=== PATIENT | male | born 1990 | race Caucasian/White ===

== ENCOUNTER 2016-08-16 11:47 | Emergency (ER) | payer MEDICAID ==
--- NOTE | 2016-08-16 12:02 | ED Physician Chart ---
Chief Complaint/HPI - Patient Information Date Seen:: 08/16/16 Time Seen:: 11:57 Chief Complaint:: cp History of Present Illness:: pt c/o severe 10/10 burning pain to left chest since 9am this am. he recalls no trauma. 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 no pain yestrerday. pain is at left chest. ant l chest sore to touch which reproduces pain. no sob. pain seems to rad toward l arm/shldr. he did eat breakfast today (porkchop) wo trouble. no gi upset. no cough. no uri sx. no fever no leg edema. no leg pains. no recent travel or immobilization. no hist of panic/anxiety attack. pt was given asa and ntg by ems wo improvement. pt has no personal family hs of cad. his dad had a cva 2 yrs ago but also has dm and htn. pt has no yousif pmh. Allergies:: Allergies Allergy/AdvReac Type Severity Reaction Status Date / Time No Known Allergies Allergy Verified 01/17/16 08:29 Historian:: Patient Review of Systems - Review of Systems General/Constitutional: No fever, No chills, No weight loss, No weakness, No diaphoresis, No edema, No loss of appetite Skin: No skin lesions, No rash, No bruising Head: No headache, No light-headedness Eyes: No loss of vision, No pain, No diplopia ENT: No earache, No nasal drainage, No sore throat, No tinnitus Neck: No neck pain, No swelling, No thyromegaly, No stiffness, No mass noted Cardio Vascular: No chest pain, No palpitations, No PND, No orthopnea, No edema Pulmonary: No SOB, No cough, No sputum, No wheezing GI: No nausea, No vomiting, No diarrhea, No pain, No melena, No hematochezia, No constipation, No hematemesis G/U: No dysuria, No frequency, No hematuria Musculoskeletal: No bone or joint pain, No back pain, No muscle pain Endocrine: No polyuria, No polydipsia Psychiatric: No prior psych history, No depression, No anxiety, No suicidal ideation Hematopoietic: No bruising, No lymphadenopathy Allergic/Immuno: No urticaria, No angioedema Neurological: No syncope, No focal symptoms, No weakness, No paresthesia, No headache, No seizure, No dizziness, No confusion, No vertigo Past Medical History - Past Medical History Past Medical History: No significant medical hx Social History: Smoker (1ppwk), No Drug Use (denies coccaine, crack or iv drug use) Medication: Reviewed Family Medical History - Family Member Mother Ethnicity: Living Status: Still Living Hx Family Hypertension: Yes Hx Family Diabetes: Yes Father Living Status: Still Living Hx Family Diabetes: Yes Labs/Radiology/EKG Results - Lab Results Results: Laboratory Tests 08/16/16 08/16/16 08/16/16 12:05 12:05 12:05 WBC 5.7 D RBC 4.43 Hgb 15.2 Hct 44.3 MCV 100.0 H MCH 34.4 H MCHC Differential 34.4 RDW 13.1 Plt Count 317 D MPV 6.8 Neutrophils % 53.7 Lymphocytes % 29.1 Monocytes % 8.6 Eosinophils % 8.2 H Basophils % 0.4 Sodium 138 Potassium 3.9 Chloride 103 Carbon Dioxide 29.8 Anion Gap 9.1 BUN 7 Creatinine 0.7 Est GFR ( Amer) > 60.0 Est GFR (Non-Af Amer) > 60.0 BUN/Creatinine Ratio 10.0 Glucose 102 Calcium 9.2 Total Bilirubin 0.6 AST 44 H ALT 42 Alkaline Phosphatase 79 Troponin I 0.01 Total Protein 8.5 H Albumin 4.9 Globulin 3.6 Albumin/Globulin Ratio 1.4 Urine Opiates Screen Urine Methadone Screen Ur Barbiturates Screen Ur Tricyclics Screen Ur Phencyclidine Scrn Amphetamines Screen U Methamphetamines Scrn U Benzodiazepines Scrn U Cocaine Metab Screen U Cannabinoids Screen 08/16/16 12:10 WBC RBC Hgb Hct MCV MCH MCHC Differential RDW Plt Count MPV Neutrophils % Lymphocytes % Monocytes % Eosinophils % Basophils % Sodium Potassium Chloride Carbon Dioxide Anion Gap BUN Creatinine Est GFR ( Amer) Est GFR (Non-Af Amer) BUN/Creatinine Ratio Glucose Calcium Total Bilirubin AST ALT Alkaline Phosphatase Troponin I Total Protein Albumin Globulin Albumin/Globulin Ratio Urine Opiates Screen NEGATIVE Urine Methadone Screen NEGATIVE Ur Barbiturates Screen NEGATIVE Ur Tricyclics Screen NEGATIVE Ur Phencyclidine Scrn NEGATIVE Amphetamines Screen NEGATIVE U Methamphetamines Scrn NEGATIVE U Benzodiazepines Scrn NEGATIVE U Cocaine Metab Screen NEGATIVE U Cannabinoids Screen NEGATIVE - Radiology Results Results: cxr nad/ wnl no ptx. no inf/ no effn - EKG Interpretations EKG Time:: 11:45 Rhythm: nsr [place]: 50 Rate: 97 Comments:: normal st/t waves. wnl ED Septic Shock - . Is Septic Shock (SBP<90, OR Lactate>4 mmol\L) present?: No Reassessment (Disposition) - Reassessment Reassessment:: results reviewed w pt. dx explained. pt to use naproxyn for pain. see pmd this week. return if worse cp and sob and nausea and l arm pain...or else worse. pt reports pain has resolves s/p toradol. feels fine now..except he feels a bit sleepy now.. Reassessment Condition:: Improved - Diagnosis Diagnosis:: 1 musculoskeletal chest pain - Aftercare/Follow up Instructions Aftercare/Follow-Up Instructions:: Counseled pt regarding lab results/diagnosis & need follow up - Patient Disposition Discharge/Transfer:: Home Condition at Disposition:: Improved
[2016-08-16 12:10] LABS: % BASOPHILS 0.4 % (0.0-2.0); % EOSINOPHILS 8.2 % (0.0-5.0); % LYMPHOCYTES 29.1 % (20.0-50.0); % MONOCYTES 8.6 % (2.0-10.0); % NEUTROPHILS 53.7 % (40.0-80.0); HEMATOCRIT 44.3 % (39.0-49.0); HEMOGLOBIN 15.2 gm/dL (13.2-17.3); MEAN CORPUSCULAR HEMOGLOBIN 34.4 pg (26.0-30.0); MEAN CORPUSCULAR HGB CONC 34.4 pg (28.0-36.0); MEAN PLATELET VOLUME 6.8 fl; RED BLOOD COUNT 4.43 Mil/cmm (4.30-5.70); RED CELL DISTRIBUTION WIDTH 13.1 % (11.5-20.0)
[2016-08-16 12:12] LABS: PLATELET COUNT 317 Th/cmm (150-400); WHITE BLOOD COUNT 5.7 Th/cmm (4.8-10.8)
[2016-08-16 12:31] LABS: ALB/GLOB RATIO 1.4 (1.0-1.8); ALKALINE PHOSPHATASE 79 U/L (34-104); ANION GAP 9.1 (7.0-16.0); BILIRUBIN,TOTAL 0.6 mg/dL (0.3-1.0); BUN - UREA NITROGEN 7 mg/dL (7-25); CALCIUM SERUM 9.2 mg/dL (8.6-10.3); CARBON DIOXIDE 29.8 mEq/L (21.0-31.0); CHLORIDE 103 mEq/L (98-107); CREATININE - SERUM 0.7 mg/dL (0.7-1.3); GLUCOSE 102 mg/dL (70-105); POTASSIUM SERUM 3.9 mEq/L (3.5-5.1); SGOT 44 U/L (13-39); SGPT/ALT 42 U/L (7-52); SODIUM SERUM 138 mEq/L (136-145)
[2016-08-16 12:35] LABS: AMPHETAMINE URINE NEGATIVE (NEGATIVE); BARBITURATES URINE NEGATIVE (NEGATIVE); METHADONE URINE NEGATIVE (NEGATIVE)
--- NOTE | 2016-08-16 14:00 | Diagnostic Imaging Report ---
CHEST X-RAY: AP view INDICATION: Left-sided chest pain COMPARISON: None FINDINGS: There is no focal consolidation or pleural effusions The heart is normal in size. There is slight irregularity of the left upper second rib.. No evidence of pneumothorax. IMPRESSION: No acute cardiopulmonary disease. Slight irregularly the left upper second rib possibly due to age-indeterminate/possible chronic trauma. Please correlate with clinical findings. No evidence of pneumothorax.
== END 2016-08-16 14:14 | disposition home or self-care (01) ==
LOC: ER 11:47
DX: R07.89 Other chest pain (principal); F17.210 Nicotine dependence, cigarettes, uncomplicated
CPT/HCPCS: 36415-UA; 71010-TC; 80053-TC; 84484-TC; 85025-TC; 93005; 96374; J1885

== ENCOUNTER 2017-03-24 12:43 | Emergency (ER) | payer MEDICAID ==
--- NOTE | 2017-03-24 13:13 | ED Physician Chart ---
ED Chief Complaint/HPI - Patient Information Date Seen:: 03/24/17 Time Seen:: 13:04 Chief Complaint:: GENERALIZED BODY ACHES FROM HEAD TO TOE X 2 DAYS FROM DRINKING ETOH. History of Present Illness:: PT WITH GENERALIZED BODY, MOST PROMINENT IN THE LOW BACK. NO ASSOCIATED WEAKNESS OR PARENTHESIS. DENIES NAUSEA OR VOMITING. HAS DIARRHEA ALMOST DAILY. NO ABD PAIN. FELL OFF ROOF 11 MO AGO WITH MULTIPLE BROKEN BONES IN LT ANKLE AND FOOT. NO PAIN AT THIS TIME. NO SHORTNESS OR BREATH OR CHEST PAIN. NO COUGH. 10/10 SEVERITY OF body ACHES. No associated relieving or exacerbating factors. Has had similar symptoms in the past when he abuses alcohol. Allergies:: Allergies Allergy/AdvReac Type Severity Reaction Status Date / Time No Known Allergies Allergy Verified 01/17/16 08:29 Vitals:: Vital Signs - 8 hr 03/24/17 12:53 Temp 98.3 F HR 99 RR 16 BP 154/103 O2 Sat % 98 ED Review of Systems - Review of Systems General/Constitutional: No fever, No chills, No weight loss, No diaphoresis, Other (generalized weakness.) Skin: No skin lesions, No rash, No bruising Head: Headache, No light-headedness Eyes: No loss of vision, No pain, No diplopia ENT: No earache, No sore throat, No tinnitus Neck: No neck pain, No swelling, No stiffness, Mass noted Cardio Vascular: No chest pain, No palpitations, No orthopnea, No edema Pulmonary: No SOB, No cough, No sputum, No wheezing GI: No nausea, No vomiting, Diarrhea, No pain, No constipation, No hematemesis G/U: No dysuria, No frequency, No hematuria, Other (circumcised.) Musculoskeletal: Bone or joint pain, Back pain, Muscle pain Psychiatric: No prior psych history, No depression, No anxiety, No suicidal ideation, No homicidal ideation Hematopoietic: No bruising, No lymphadenopathy Allergic/Immuno: No urticaria, No angioedema Neurological: No syncope, No focal symptoms, Weakness, No paresthesia, Headache , No seizure ED Past Medical History - Past Medical History Past Medical History: Other (90s any history of diabetes, hypertension or heart disease.) Social History: Smoker, Alcohol, Illicit Drug Use (patient uses marijuana), Single, 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 We'll give him mild distress because of his complaint of body aches. Head: Atraumatic Eyes: Lids, conjuctiva normal, PERRL, EOMI Other Eyes comments:: has horizontal nystagmus with gaze to both the right and the left. Skin: Nl inspection, No rash, No skin lesions, No ecchymosis ENMT: External ears, nose nl, TM canals nl, Nasal exam nl, Oropharynx nl, Tonsils nl Other ENMT comments:: Multiple missing and broken teeth. Also areas of dental caries. Neck: Nontender, Full ROM w/o pain, No JVD, No nuchal rigidity, No bruit, No mass, No stridor Respiratory: Nl effort/Exclusion, Clear to Auscultation, No Wheeze/Rhonchi/Rales Cardio Vascular: No murmur, gallop, rubs, NL S1 S2 Other Cardio Vascular comments:: Good pulses all 4 extremities. GI: No tenderness/rebounding/guarding, No organomegaly, No hernia, Normal BS's, Nondistended, No mass/bruits, No McBurney tenderness Other GI comments:: Rectal exam deferred at my discretion. The patient has no visible surgical scars on the abdomen. : No CVA tenderness, NL external genitalia Extremities: No tenderness or effusion, Full ROM, normal strength in all extremities, Normal digits & nails Neuro/Psych: Alert/oriented, DTR's symmetric, Normal sensory exam, Normal motor strength, Mood normal, Normal gait, No focal deficits Misc: Normal back, No paraspinal tenderness Other Misc comments:: No spinal tenderness on palpation over the thoracic or lumbar spine regions. No paraspinous muscle spasm. Straight leg raising. ED Labs/Radiology/EKG Results - Lab Results Results: Laboratory Results - last 24 hr 03/24/17 03/24/17 03/24/17 13:15 13:15 13:15 WBC 5.8 RBC 5.40 Hgb 18.5 D Hct 54.0 D MCV 99.9 H MCH 34.2 H MCHC Differential 34.2 RDW 12.9 Plt Count 204 D MPV 7.9 Neutrophils % 54.5 Lymphocytes % 26.3 Monocytes % 7.1 Eosinophils % 12.0 H Basophils % 0.1 PT INR PTT (Actin FS) Sodium 135 L Potassium 3.7 Chloride 100 Carbon Dioxide 28.7 Anion Gap 10.0 BUN 7 Creatinine 0.7 Est GFR ( Amer) > 60.0 Est GFR (Non-Af Amer) > 60.0 BUN/Creatinine Ratio 10.0 Glucose 82 Calcium 9.7 Total Bilirubin 1.2 H AST 73 H ALT 52 Alkaline Phosphatase 88 Total Protein 9.6 H Albumin 5.5 Globulin 4.1 Albumin/Globulin Ratio 1.3 Amylase Lipase Urine Source RANDOM Urine Color YELLOW Urine Clarity SL. CLOUDY Urine pH 5.5 Ur Specific [place] <= 1.005 Urine Protein TRACE Urine Glucose (UA) NEGATIVE Urine Ketones NEGATIVE Urine Blood TRACE Urine Nitrate NEGATIVE Urine Bilirubin NEGATIVE Urine Urobilinogen 0.2 Ur Leukocyte Esterase NEGATIVE Urine RBC 0-2 H Urine WBC NONE SEEN Ur Epithelial Cells RARE Urine Bacteria NONE SEEN Urine Opiates Screen Urine Methadone Screen Ur Barbiturates Screen Ur Tricyclics Screen Ur Phencyclidine Scrn Amphetamines Screen U Methamphetamines Scrn U Benzodiazepines Scrn U Cocaine Metab Screen U Cannabinoids Screen 03/24/17 03/24/17 03/24/17 13:15 13:15 13:15 WBC RBC Hgb Hct MCV MCH MCHC Differential RDW Plt Count MPV Neutrophils % Lymphocytes % Monocytes % Eosinophils % Basophils % PT 9.7 INR 0.93 PTT (Actin FS) 29.0 Sodium Potassium Chloride Carbon Dioxide Anion Gap BUN Creatinine Est GFR ( Amer) Est GFR (Non-Af Amer) BUN/Creatinine Ratio Glucose Calcium Total Bilirubin AST ALT Alkaline Phosphatase Total Protein Albumin Globulin Albumin/Globulin Ratio Amylase 33 Lipase 12 Urine Source Urine Color Urine Clarity Urine pH Ur Specific [place] Urine Protein Urine Glucose (UA) Urine Ketones Urine Blood Urine Nitrate Urine Bilirubin Urine Urobilinogen Ur Leukocyte Esterase Urine RBC Urine WBC Ur Epithelial Cells Urine Bacteria Urine Opiates Screen NEGATIVE Urine Methadone Screen NEGATIVE Ur Barbiturates Screen NEGATIVE Ur Tricyclics Screen NEGATIVE Ur Phencyclidine Scrn NEGATIVE Amphetamines Screen NEGATIVE U Methamphetamines Scrn NEGATIVE U Benzodiazepines Scrn NEGATIVE U Cocaine Metab Screen NEGATIVE U Cannabinoids Screen NEGATIVE The CBC is unremarkable with no leukocytosis or anemia. His renal function studies were normal. Liver function studies were all within normal parameters except for the AST which was mildly elevated. Electrolytes were all within normal parameters except for the serum sodium which was mildly depressed. Urinalysis was negative for any suggestive of UTI. ED Septic Shock - . Is Septic Shock (SBP<90, OR Lactate>4 mmol\L) present?: No - <6hrs of presentation: Vital Signs: Vital Signs - 8 hr 03/24/17 12:53 Temp 98.3 F HR 99 RR 16 BP 154/103 O2 Sat % 98
[2017-03-24] MEDS ORDERED: Multivitamin Inj 10 ML, Thiamine HCL 100 MG, Magnesium Sulfate 2 GM, Folic Acid 1 MG in... IV ONE (13:16)
[2017-03-24] MEDS ORDERED: Sodium Chloride 0.9% 1,000 ML IV ONE ×2 (13:20)
[2017-03-24 13:26] LABS: URINE MICROSCOPIC INDICATED? YES; URINE SOURCE RANDOM
[2017-03-24 13:27] LABS: % BASOPHILS 0.1 % (0.0-2.0); % LYMPHOCYTES 26.3 % (20.0-50.0); % MONOCYTES 7.1 % (2.0-10.0); % NEUTROPHILS 54.5 % (40.0-80.0); EOSINOPHILE ABSOLUTE 0.7 Th/cmm (0.1-0.4); LYMPHOCYTE ABSOLUTE 1.5 Th/cmm (1.5-3.0); MEAN CELL VOLUME 99.9 fl (80-99); MEAN CORPUSCULAR HEMOGLOBIN 34.2 pg (26.0-30.0); MEAN CORPUSCULAR HGB CONC 34.2 pg (28.0-36.0); MEAN PLATELET VOLUME 7.9 fl; MONOCYTE ABSOLUTE 0.4 Th/cmm (0.3-1.0); NEUTROPHILE ABSOLUTE 3.2 Th/cmm (1.8-8.0); RED CELL DISTRIBUTION WIDTH 12.9 % (11.5-20.0); WHITE BLOOD COUNT 5.8 Th/cmm (4.8-10.8)
[2017-03-24] MEDS ORDERED: Thiamine 100 mg/mL 2mL Vial ONE (13:27)
[2017-03-24] MEDS ORDERED: Magnesium Sulfate 1 gm/2 mL 2mL Vial IV ONE (13:27)
[2017-03-24 13:28] LABS: HEMOGLOBIN 18.5 gm/dL (12-16); PLATELET COUNT 204 Th/cmm (150-400)
[2017-03-24] MEDS ORDERED: Multivitamin Inj 10 mL Vial IV ONE (13:28)
[2017-03-24 13:37] LABS: URINE BILIRUBIN NEGATIVE (NEGATIVE); URINE BLOOD TRACE (NEGATIVE); URINE COLOR YELLOW; URINE GLUCOSE (UA) NEGATIVE (NEGATIVE); URINE KETONE NEGATIVE (NEGATIVE); URINE LEUKOCYTE ESTERASE NEGATIVE (NEGATIVE); URINE NITRATE NEGATIVE (NEGATIVE); URINE PH 5.5 (4.6 - 8.0); URINE PROTEIN TRACE mg/dL (NEGATIVE); URINE UROBILINOGEN 0.2 E.U./dL (0.2 - 1.0)
[2017-03-24 13:38] LABS: URINE CLARITY SL. CLOUDY (CLEAR)
[2017-03-24 13:40] LABS: URINE BACTERIA NONE SEEN /hpf (NONE SEEN); URINE EPITHELIAL CELLS RARE /lpf (FEW); URINE RBC 0-2 /hpf (0-5); URINE WBC NONE SEEN /hpf (0-5)
[2017-03-24 13:42] LABS: INR 0.93 (0.5-1.4); PROTHROMBIN TIME (TEST) 9.7 SECONDS (9.5-11.5)
[2017-03-24 13:46] LABS: AMPHETAMINE URINE NEGATIVE (NEGATIVE); BARBITURATES URINE NEGATIVE (NEGATIVE); BENZODIAZEPINES QUAL URINE NEGATIVE (NEGATIVE); CANNABINOID THC NEGATIVE (NEGATIVE); COCAINE METABOLITE QUAL URINE NEGATIVE (NEGATIVE); METHADONE URINE NEGATIVE (NEGATIVE); METHAMPHETAMINES QUAL URINE NEGATIVE (NEGATIVE); OPIATES (MORPHINE) QUAL. URINE NEGATIVE (NEGATIVE); PHENCYCLIDINE (PCP) URINE NEGATIVE (NEGATIVE); TRICYCLICS (TCA) QUAL. URINE NEGATIVE (NEGATIVE)
[2017-03-24 13:47] LABS: ALB/GLOB RATIO 1.3 (1.0-1.8); ALBUMIN 5.5 gm/dL (4.2-5.5); ALKALINE PHOSPHATASE 88 U/L (34-104); BILIRUBIN,TOTAL 1.2 mg/dL (0.3-1.0); BUN - UREA NITROGEN 7 mg/dL (7-25); CALCIUM SERUM 9.7 mg/dL (8.6-10.3); CARBON DIOXIDE 28.7 mEq/L (21.0-31.0); CHLORIDE 100 mEq/L (98-107); CREATININE - SERUM 0.7 mg/dL (0.7-1.3); GFR AFRICAN-AMERICAN > 60.0 ml/min (>90); GFR NON AFRICAN-AMERICAN > 60.0 ml/min; GLUCOSE 82 mg/dL; POTASSIUM SERUM 3.7 mEq/L (3.5-5.1); SGOT 73 U/L (13-39); SGPT/ALT 52 U/L (7-52); SODIUM SERUM 135 mEq/L (136-145); TOTAL PROTEIN,SERUM 9.6 gm/dL (6.0-8.3)
[2017-03-24 13:48] LABS: AMYLASE SERUM 33 U/L (29-103); LIPASE 12 U/L (11-82)
== END 2017-03-24 16:35 | disposition home or self-care (01) ==
LOC: ER 12:43
DX: R52 Pain, unspecified (principal); M54.5 Low back pain; R19.7 Diarrhea, unspecified; F17.200 Nicotine dependence, unspecified, uncomplicated
CPT/HCPCS: 99284; 36415; 80307; 85025; 85610; 82150; 83690; 80053; 81001; J3411 ×2; J3475; J7030; X6226; X6598; Z7502

== ENCOUNTER 2017-08-01 20:03 | Emergency (ER) | payer MEDICAID ==
[2017-08-01] MEDS ORDERED: Maalox 30 mL Cup PO ONE (20:29)
[2017-08-01] MEDS ORDERED: Donnatal Liq 5 ML UDC PO STA (20:30)
[2017-08-01] MEDS ORDERED: Maalox 30 mL Cup ONE (20:38)
--- NOTE | 2017-08-01 21:12 | ED Physician Chart ---
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 Allergies:: Allergies Allergy/AdvReac Type Severity Reaction Status Date / Time No Known Allergies Allergy Verified 01/17/16 08:29 Vitals:: Vital Signs - 8 hr 08/01/17 08/01/17 20:05 20:42 Temp 97.8 F 98.1 F HR 107 71 RR 18 16 BP 125/70 128/62 O2 Sat % 98 98 Historian:: Patient, EMS Review:: Nurse's Note Reviewed, Old Chart Reviewed, EMS run form Reviewed ED Review of Systems - Review of Systems General/Constitutional: No fever, No chills, No weight loss, No weakness, No diaphoresis, No edema, No loss of appetite Skin: No skin lesions, No rash, No bruising Head: No headache, No light-headedness Eyes: No loss of vision, No pain, No diplopia ENT: No earache, No nasal drainage, No sore throat, No tinnitus Neck: No neck pain, No swelling, No thyromegaly, No stiffness, No mass noted Cardio Vascular: No chest pain, No palpitations, No PND, No orthopnea, No edema Pulmonary: No SOB, No cough, No sputum, No wheezing GI: No nausea, No vomiting, No diarrhea, Pain, No melena, No hematochezia, No constipation, No hematemesis G/U: No dysuria, No frequency, No hematuria, No nacturia Musculoskeletal: No bone or joint pain, No back pain, No muscle pain Endocrine: No polyuria, No polydipsia Psychiatric: No prior psych history, No depression, No anxiety, No suicidal ideation, No homicidal ideation, No auditory hallucination, No visual hallucination Hematopoietic: No bruising, No lymphadenopathy Allergic/Immuno: No urticaria, No angioedema Neurological: No syncope, No focal symptoms, No weakness, No paresthesia, No headache, No seizure, No dizziness, No confusion, No vertigo ED Past Medical History - Past Medical History Obtainable: Yes Past Medical History: No significant medical hx Family History: HTN Social History: Smoker, Alcohol, No Drug Use, Single, Lives With Parents Surgical History: None Psychiatricy History: None Medication: Reviewed Family Medical History - Family Member Mother History Unknown: Yes Ethnicity: Living Status: Still Living Hx Family Hypertension: Yes Hx Family Diabetes: Yes Father History Unknown: Yes Ethnicity: Living Status: Still Living Hx Family Hypertension: Yes Hx Family Diabetes: Yes ED Physical Exam - Physical Examination General/Constitutional: Awake, Well-developed, well-nourished, Alert, No distress, GCS 15, Non-toxic appearing, Ambulatory Head: Atraumatic Eyes: Lids, conjuctiva normal, PERRL, EOMI Other Eyes comments:: PERRLA; Fundi: benign; EOMs: WNL Skin: Nl inspection, No rash, No skin lesions, No ecchymosis, Well hydrated, No lymphadenopathy ENMT: External ears, nose nl, TM canals nl, Nasal exam nl, Lips, teeth, gums nl , Oropharynx nl, Tonsils nl Other ENMT comments:: TMJs: WNL Neck: Nontender, Full ROM w/o pain, No JVD, No nuchal rigidity, No bruit, No mass, No stridor Other Neck comments:: supple; no meningeal signs; no cervical tenderness; no bruits Respiratory: Nl effort/Exclusion, Clear to Auscultation, No Wheeze/Rhonchi/Rales Cardio Vascular: RRR, No murmur, gallop, rubs, NL S1 S2, Carotid/Femoral/Distal pulses equal bilaterally GI: No tenderness/rebounding/guarding, No organomegaly, No hernia, Normal BS's, Nondistended, No mass/bruits, No McBurney tenderness, Rectum exam nl Other GI comments:: no pulsatile masses; good BS : No CVA tenderness Extremities: No tenderness or effusion, Full ROM, normal strength in all extremities, No edema, Normal digits & nails Neuro/Psych: Alert/oriented, DTR's symmetric, Normal sensory exam, Normal motor strength, Judgement/insight normal, Mood normal, Normal gait, No focal deficits Misc: Normal back, No paraspinal tenderness ED Septic Shock - . Is Septic Shock (SBP<90, OR Lactate>4 mmol\L) present?: No - <6hrs of presentation: Vital Signs: Vital Signs - 8 hr 08/01/17 08/01/17 20:05 20:42 Temp 97.8 F 98.1 F HR 107 71 RR 18 16 BP 125/70 128/62 O2 Sat % 98 98 ED Reassessment (Disposition) - Reassessment Reassessment:: pt tolerated po fluids well in ER; pt is asymptomatic upon discharge Reassessment Condition:: Improved - Diagnosis Diagnosis:: Epigastric/Abdominal Pain-Resolved; AGE; Gastritis; Alcoholism - Aftercare/Follow up Instructions Aftercare/Follow-Up Instructions:: Counseled pt regarding lab results/diagnosis & need follow up, Refer to Discharge Instructions, Counseled pt & family regarding lab results/diagnosis & need follow up Medication Prescribed:: Avoid Alcoholic Beverages; Stop Smoking Cigarettes; Mylanta 30cc po tid prn stomach aches; Tylenol: take medications as prescribed; clear liquids; encourage fluids - Patient Disposition Discharge/Transfer:: Home Condition at Disposition:: Stable, Improved (RTER prn if existing s/s reoccur and/or get worse and/or any other new s/s occur; ACIs given for all above Dx; Refer to [facility] RAUL; Refer to GI Specialist/Psychiatrist/Drink Box Mechanic RAUL; F/U with PMD in one day or prn; RTER prn if concerned) ED Discharge Plan - Patient Disposition Admit/Discharge/Transfer: PT DISCHARGED HOME Instructions: Abdominal Pain Additional Instructions: FOLLOW UP WITH YOUR PRIMARY MEDICAL DOCTOR RAUL STOP DRINKING ALCOHOLIC BEVERAGES
== END 2017-08-01 21:00 | disposition home or self-care (01) ==
LOC: ER 20:03
DX: K52.9 Noninfective gastroenteritis and colitis, unspecified (principal); F10.20 Alcohol dependence, uncomplicated; F17.200 Nicotine dependence, unspecified, uncomplicated
CPT/HCPCS: Z7502

== ENCOUNTER 2017-09-22 21:34 | Emergency (ER) | payer MEDICAID ==
[2017-09-22] MEDS ORDERED: Sodium Chloride 0.45% 1,000 ML IV ONE (21:51)
--- NOTE | 2017-09-22 21:57 | ED Physician Chart ---
ED Chief Complaint/HPI - Patient Information Date Seen:: 09/22/17 Time Seen:: 21:49 Chief Complaint:: ALCOHOL INTOXICATION History of Present Illness:: THIS IS A 26 YO ALCOHOLIC WELL KNOW IN THIS ER WHO STATES THAT HE HAS BEEN DRINKING ALCOHOL ALL DAY. HE STATES THAT HE DRINKS TO LOWER HIS STRESS ABOUT HIS DAUGHTER. HE DENIES ALL OTHER MEDICAL PROBLEMS. Allergies:: Allergies Allergy/AdvReac Type Severity Reaction Status Date / Time No Known Allergies Allergy Verified 01/17/16 08:29 Vitals:: Vital Signs - 8 hr 09/22/17 21:35 Temp 97.7 F HR 100 RR 18 BP 146/81 O2 Sat % 96 Historian:: Patient, Medical Records Review:: Nurse's Note Reviewed, Old Chart Reviewed ED Review of Systems - Review of Systems General/Constitutional: No fever, No chills, Weight loss, Weakness, No diaphoresis, No edema, No loss of appetite Skin: No skin lesions, No rash, No bruising Head: No headache, No light-headedness Eyes: No loss of vision, No pain, No diplopia ENT: No earache, No nasal drainage, No sore throat, No tinnitus Neck: No neck pain, No swelling, No thyromegaly, No stiffness, No mass noted Cardio Vascular: No chest pain, No palpitations, No PND, No orthopnea, No edema Pulmonary: No SOB, No cough, No sputum, No wheezing GI: No nausea, No vomiting, No diarrhea, No pain, No melena, No hematochezia, No constipation, No hematemesis G/U: No dysuria, No frequency, No hematuria Musculoskeletal: No bone or joint pain, No back pain, No muscle pain Endocrine: No polyuria, No polydipsia Psychiatric: No prior psych history, Depression, No anxiety, No suicidal ideation Hematopoietic: No bruising, No lymphadenopathy Allergic/Immuno: No urticaria, No angioedema Neurological: No syncope, No focal symptoms, No weakness, No paresthesia, No headache, No seizure, No dizziness, No confusion, No vertigo ED Past Medical History - Past Medical History Obtainable: Yes Past Medical History: No significant medical hx Family History: None Social History: Smoker, Alcohol, Illicit Drug Use, Single Surgical History: None Psychiatricy History: None Medication: Reviewed Family Medical History - Family Member Mother History Unknown: Yes Ethnicity: Living Status: Still Living Hx Family Hypertension: Yes Hx Family Diabetes: Yes Father History Unknown: Yes Ethnicity: Living Status: Still Living Hx Family Hypertension: Yes Hx Family Diabetes: Yes ED Physical Exam - Physical Examination General/Constitutional: Awake, Well-developed, well-nourished, Alert, No distress, GCS 15, Ambulatory Other Gen/Cons comments:: INTOXICATED LOOKING Head: Atraumatic Eyes: Lids, conjuctiva normal, PERRL, EOMI Skin: Nl inspection, No rash, No skin lesions, No ecchymosis, Well hydrated, No lymphadenopathy ENMT: External ears, nose nl, Nasal exam nl, Lips, teeth, gums nl Neck: Nontender, Full ROM w/o pain, No JVD, No nuchal rigidity, No bruit, No mass, No stridor Respiratory: Nl effort/Exclusion, Clear to Auscultation, No Wheeze/Rhonchi/Rales Cardio Vascular: RRR, No murmur, gallop, rubs, NL S1 S2 GI: No tenderness/rebounding/guarding, No organomegaly, No hernia, Normal BS's, Nondistended, No mass/bruits, No McBurney tenderness : No CVA tenderness Extremities: No tenderness or effusion, Full ROM, normal strength in all extremities, No edema, Normal digits & nails Neuro/Psych: Alert/oriented, DTR's symmetric, Normal sensory exam, Normal motor strength, Judgement/insight normal, Mood normal, Normal gait, No focal deficits Misc: Normal back, No paraspinal tenderness ED Labs/Radiology/EKG Results - EKG Interpretations EKG Time:: 21:43 Rate & Rhythm: RATE=95, SINUS [place]: RIGHT AXIS Intervals: NO ECTOPY SEEN ED Assessment - Assessment General Assessment: ALCOHOLIC INTOXICATION ED Septic Shock - . Is Septic Shock (SBP<90, OR Lactate>4 mmol\L) present?: No - <6hrs of presentation: Vital Signs: Vital Signs - 8 hr 09/22/17 21:35 Temp 97.7 F HR 100 RR 18 BP 146/81 O2 Sat % 96 ED Reassessment (Disposition) - Reassessment Reassessment Condition:: Improved - Diagnosis Diagnosis:: ALCOHOL INTOXICATION - Aftercare/Follow up Instructions Aftercare/Follow-Up Instructions:: Counseled pt regarding lab results/diagnosis & need follow up, Refer to Discharge Instructions, Counseled pt & family regarding lab results/diagnosis & need follow up - Patient Disposition Discharge/Transfer:: Home
[2017-09-22 22:14] LABS: % BASOPHILS 1.6 % (0.0-2.0); % EOSINOPHILS 4.7 % (0.0-5.0); % LYMPHOCYTES 25.2 % (20.0-50.0); % NEUTROPHILS 61.5 % (40.0-80.0); BASOPHILE ABSOLUTE 0.1 Th/cumm (0-0.2); EOSINOPHILE ABSOLUTE 0.2 Th/cmm (0.1-0.4); HEMATOCRIT 46.6 % (41.0-60); HEMOGLOBIN 15.9 gm/dL (12-16); LYMPHOCYTE ABSOLUTE 1.2 Th/cmm (1.5-3.0); MEAN CELL VOLUME 102.9 fl (80-99); MEAN PLATELET VOLUME 6.9 fl; MONOCYTE ABSOLUTE 0.3 Th/cmm (0.3-1.0); PLATELET COUNT 203 Th/cmm (150-400); RED BLOOD COUNT 4.52 Mil/cmm (4.30-5.70); WHITE BLOOD COUNT 4.8 Th/cmm (4.8-10.8)
[2017-09-22 22:28] LABS: INR 0.97 (0.5-1.4); PROTHROMBIN TIME (TEST) 10.1 SECONDS (9.5-11.5)
[2017-09-22 22:30] LABS: ALB/GLOB RATIO 1.3 (1.0-1.8); ALBUMIN 4.6 gm/dL (4.2-5.5); ALKALINE PHOSPHATASE 98 U/L (34-104); ANION GAP 19.5 (7.0-16.0); BILIRUBIN,TOTAL 0.8 mg/dL (0.3-1.0); BUN - UREA NITROGEN 10 mg/dL (7-25); CALCIUM SERUM 9.2 mg/dL (8.6-10.3); CHLORIDE 97 mEq/L (98-107); CREATININE - SERUM 0.6 mg/dL (0.7-1.3); GFR AFRICAN-AMERICAN > 60.0 ml/min (>90); GFR NON AFRICAN-AMERICAN > 60.0 ml/min; GLUCOSE 94 mg/dL (70-105); POTASSIUM SERUM 3.5 mEq/L (3.5-5.1); SGOT 56 U/L (13-39); SGPT/ALT 40 U/L (7-52); SODIUM SERUM 138 mEq/L (136-145); TOTAL PROTEIN,SERUM 8.2 gm/dL (6.0-8.3)
== END 2017-09-23 00:15 | disposition home or self-care (01) ==
LOC: ER 21:34
DX: F10.129 Alcohol abuse with intoxication, unspecified (principal); F17.200 Nicotine dependence, unspecified, uncomplicated
CPT/HCPCS: 36415-UA; 80053-TC; 80320-TC; 84443-TC; 84484-TC; 85025-TC; 85610-TC; 93005

== ENCOUNTER 2017-09-23 19:47 | Emergency (ER) | payer MEDICAID ==
--- NOTE | 2017-09-23 20:16 | ED Physician Chart ---
ED Chief Complaint/HPI - Patient Information Date Seen:: 09/23/17 Time Seen:: 20:03 Chief Complaint:: Pt is intoxicated with ethanol. History of Present Illness:: Brought in by ambulance because pt was noticed to be intoxicated with ethanol and has had frontal headache. Pt denies recent h/o head injury. Pt had transient N/V earlier today with vomitus consists of gastric content. No hematemesis. Pt appears to be comfortable. He speaks clearly but is not fully cooperative. H & P are thus limited. Allergies:: Allergies Allergy/AdvReac Type Severity Reaction Status Date / Time No Known Allergies Allergy Verified 09/23/17 19:56 Vitals:: Vital Signs - 8 hr 09/23/17 19:50 Temp 98.2 F HR 110 RR 18 BP 150/100 O2 Sat % 97 Historian:: Patient Family MD/PCP:: Unknown LMP:: N/A Review:: Nurse's Note Reviewed ED Review of Systems - Review of Systems General/Constitutional: No fever, No weight loss, No weakness, No edema, No loss of appetite Skin: No rash, No bruising Head: Headache, No light-headedness Eyes: No loss of vision, No pain, No diplopia ENT: No earache, No nasal drainage, No sore throat Neck: No neck pain, No swelling, No stiffness, No mass noted Cardio Vascular: No chest pain Pulmonary: No SOB, No cough GI: Nausea, Vomiting, No diarrhea, No pain, No melena, No hematochezia, No hematemesis G/U: No dysuria, No frequency, No hematuria Musculoskeletal: No bone or joint pain Psychiatric: No prior psych history, No depression Hematopoietic: No bruising, No lymphadenopathy Allergic/Immuno: No urticaria, No angioedema Neurological: No syncope, No focal symptoms, No weakness, No paresthesia, Headache, No seizure ED Past Medical History - Past Medical History Past Medical History: Other (alcoholic liver disease.) Family History: Diabetes Melitus (father), Cancer (in mother) Social History: Smoker, Alcohol, Illicit Drug Use (with marijuana. Pt has been informed about health risks associated wtih chronic tobacco, ethanol, and drug use. Pt has been advised to stop and to enroll in a detox program. Pt acknowledges understanding.), , Employed, Other (lives with his father.) Employment:: [id number] Psychiatricy History: None Medication: Reviewed Family Medical History - Family Member Mother History Unknown: Yes Ethnicity: Living Status: Still Living Hx Family Hypertension: Yes Hx Family Diabetes: Yes Father History Unknown: Yes Ethnicity: Living Status: Still Living Hx Family Hypertension: Yes Hx Family Diabetes: Yes ED Physical Exam - Physical Examination General/Constitutional: Awake, Well-developed, well-nourished, Alert, No distress Other Gen/Cons comments:: Breathes comfortably, speaks clearly, but is not fully cooperative. Head: Atraumatic Eyes: Lids, conjuctiva normal, PERRL, EOMI Skin: No rash, No ecchymosis, Well hydrated, No lymphadenopathy ENMT: External ears, nose nl, TM canals nl, Nasal exam nl, Oropharynx nl, Tonsils nl Neck: Nontender, Full ROM w/o pain, No nuchal rigidity, No mass, No stridor Respiratory: Nl effort/Exclusion, Clear to Auscultation, No Wheeze/Rhonchi/Rales Cardio Vascular: RRR (HR 96), No murmur, gallop, rubs GI: No tenderness/rebounding/guarding, No organomegaly, No hernia, Normal BS's, Nondistended, No McBurney tenderness Other GI comments:: Abdomen is soft. Extremities: No edema Neuro/Psych: Alert/oriented (oriented x 3.), No focal deficits ED Labs/Radiology/EKG Results - Lab Results Results: Laboratory Tests 09/23/17 09/23/17 09/23/17 20:39 20:39 20:39 WBC 5.9 RBC 4.62 Hgb 16.2 Hct 47.4 MCV 102.6 H MCH 35.0 H MCHC Differential 34.1 RDW 13.6 Plt Count 189 MPV 6.9 Neutrophils % 66.7 Lymphocytes % 19.2 L Monocytes % 9.9 Eosinophils % 2.8 Basophils % 1.4 PT 10.0 INR 0.96 PTT (Actin FS) 26.4 Sodium 136 Potassium 3.6 Chloride 95 L Carbon Dioxide 28.3 Anion Gap 16.3 H BUN 8 Creatinine 0.6 L Est GFR ( Amer) > 60.0 Est GFR (Non-Af Amer) > 60.0 BUN/Creatinine Ratio 13.3 Glucose 121 H Calcium 9.0 Total Bilirubin 0.9 AST 44 H ALT 36 Alkaline Phosphatase 94 Total Protein 8.1 Albumin 4.5 Globulin 3.6 Albumin/Globulin Ratio 1.3 Ethyl Alcohol 466 H - Radiology Results Results: Head CT without contrast: No acute intracranial abnormalities. Mucosal thickening maxillary, ethmoid sinuses. Official report per Dr. Alexis Vick, radiologist. ED Septic Shock - . Is Septic Shock (SBP<90, OR Lactate>4 mmol\L) present?: No - <6hrs of presentation: Vital Signs: Vital Signs - 8 hr /11/05 19:50 Temp 98.2 F HR 110 RR 18 BP 150/100 O2 Sat % 97 ED Reassessment (Disposition) - Reassessment Reassessment:: 2135 Pt has been repeatedly evaluated. Pt is comfortable and stable. 0700 Pt slept through the night comfortably and uneventfully. A repeat ethanol level has been ordered. Case has been signed off to Dr. Strauss for continued care. Reassessment Condition:: Improved - Diagnosis Diagnosis:: Ethanol intoxication. CORDOVA related to the above. Stable and improved. ED Discharge Plan - Patient Disposition Instructions: Alcohol Intoxication, [id number] Additional Instructions: MAKE A FOLLOW UP WITH PRIMARY MEDICAL DOCTOR RAUL, DO NOT DRINK LIQOURS/ ALCOHOLIC BEVERAGES.
[2017-09-23] MEDS ORDERED: Multivitamin Inj 10 ML, Thiamine HCL 100 MG, Magnesium Sulfate 2 GM, Folic Acid 1 MG in... IV ONE (20:26)
[2017-09-23] MEDS ORDERED: Thiamine 100 mg/mL 2mL Vial ONE (20:44)
[2017-09-23] MEDS ORDERED: Magnesium Sulfate 1 gm/2 mL 2mL Vial IV ONE (20:45)
[2017-09-23 20:50] LABS: % BASOPHILS 1.4 % (0.0-2.0); % EOSINOPHILS 2.8 % (0.0-5.0); % LYMPHOCYTES 19.2 % (20.0-50.0); % MONOCYTES 9.9 % (2.0-10.0); % NEUTROPHILS 66.7 % (40.0-80.0); BASOPHILE ABSOLUTE 0.1 Th/cumm (0-0.2); EOSINOPHILE ABSOLUTE 0.2 Th/cmm (0.1-0.4); HEMATOCRIT 47.4 % (41.0-60); HEMOGLOBIN 16.2 gm/dL (12-16); LYMPHOCYTE ABSOLUTE 1.1 Th/cmm (1.5-3.0); MEAN CELL VOLUME 102.6 fl (80-99); MEAN CORPUSCULAR HGB CONC 34.1 pg (28.0-36.0); MEAN PLATELET VOLUME 6.9 fl; MONOCYTE ABSOLUTE 0.6 Th/cmm (0.3-1.0); NEUTROPHILE ABSOLUTE 3.9 Th/cmm (1.8-8.0); PLATELET COUNT 189 Th/cmm (150-400); RED BLOOD COUNT 4.62 Mil/cmm (4.30-5.70); RED CELL DISTRIBUTION WIDTH 13.6 % (11.5-20.0); WHITE BLOOD COUNT 5.9 Th/cmm (4.8-10.8)
[2017-09-23] MEDS ORDERED: Multivitamin Inj 10 mL Vial IV ONE (20:52)
[2017-09-23 20:53] LABS: INR 0.96 (0.5-1.4)
[2017-09-23 20:57] LABS: ALB/GLOB RATIO 1.3 (1.0-1.8); ALBUMIN 4.5 gm/dL (4.2-5.5); ALKALINE PHOSPHATASE 94 U/L (34-104); ANION GAP 16.3 (7.0-16.0); BILIRUBIN,TOTAL 0.9 mg/dL (0.3-1.0); BUN - UREA NITROGEN 8 mg/dL (7-25); CARBON DIOXIDE 28.3 mEq/L (21.0-31.0); CHLORIDE 95 mEq/L (98-107); CREATININE - SERUM 0.6 mg/dL (0.7-1.3); GFR AFRICAN-AMERICAN > 60.0 ml/min (>90); GFR NON AFRICAN-AMERICAN > 60.0 ml/min; GLUCOSE 121 mg/dL (70-105); POTASSIUM SERUM 3.6 mEq/L (3.5-5.1); SGOT 44 U/L (13-39); SGPT/ALT 36 U/L (7-52); SODIUM SERUM 136 mEq/L (136-145); TOTAL PROTEIN,SERUM 8.1 gm/dL (6.0-8.3)
--- NOTE | 2017-09-24 08:13 | Diagnostic Imaging Report ---
Head CT without intravenous contrast Indication: Headache Comparison: None Technique: Axial images were obtained from the vertex to the skull base without IV contrast. Coronal reconstructions were made. Total DLP: 633, CTDI34 FINDINGS: Images of the brain obtained without contrast demonstrate no acute hemorrhage. No mass lesions identified. The ventricles and basal cisterns are patent. The guo-white matter differentiation is preserved. There is no mass effect or midline shift. No skull fractures identified. No soft tissue swelling. There is mucosal thickening of the paranasal sinuses with possible small mucous retention cysts of the versus polyps of the bilateral maxillary sinus. IMPRESSION: No acute intracranial abnormality. Mild sinus disease greatest along the maxillary sinuses with possible small mucous retention cysts versus polyps.
== END 2017-09-24 08:40 | disposition home or self-care (01) ==
LOC: ER 19:47
DX: F10.129 Alcohol abuse with intoxication, unspecified (principal); M94.0 Chondrocostal junction syndrome [Tietze]; F19.10 Other psychoactive substance abuse, uncomplicated; F17.200 Nicotine dependence, unspecified, uncomplicated
CPT/HCPCS: 99285; 96365; 96366; 70450; 36415 ×2; 36416; 85025; 85610; 80320 ×2; 80053; J3411; 82948-90; J3475; J7030; X6226; X6598; Z7610

== ENCOUNTER 2018-01-16 22:50 | Emergency (ER) | payer MEDICAID ==
[2018-01-16] MEDS ORDERED: Sodium Chloride 0.9% 1,000 ML IV ONE (23:06)
[2018-01-16 23:26] LABS: URINE SOURCE CLEAN C
[2018-01-16 23:31] LABS: % BASOPHILS 0.8 % (0.0-2.0); % EOSINOPHILS 0.6 % (0.0-5.0); % LYMPHOCYTES 20.9 % (20.0-50.0); % MONOCYTES 10.4 % (2.0-10.0); % NEUTROPHILS 67.3 % (40.0-80.0); BASOPHILE ABSOLUTE 0.1 Th/cumm (0-0.2); HEMATOCRIT 40.1 % (41.0-60); HEMOGLOBIN 14.3 gm/dL (12-16); LYMPHOCYTE ABSOLUTE 1.3 Th/cmm (1.5-3.0); MEAN CELL VOLUME 98.8 fl (80-99); MEAN CORPUSCULAR HEMOGLOBIN 35.2 pg (26.0-30.0); MEAN CORPUSCULAR HGB CONC 35.7 pg (28.0-36.0); MEAN PLATELET VOLUME 7.3 fl; MONOCYTE ABSOLUTE 0.7 Th/cmm (0.3-1.0); NEUTROPHILE ABSOLUTE 4.3 Th/cmm (1.8-8.0); PLATELET COUNT 201 Th/cmm (150-400); RED BLOOD COUNT 4.06 Mil/cmm (4.30-5.70); RED CELL DISTRIBUTION WIDTH 11.9 % (11.5-20.0); WHITE BLOOD COUNT 6.4 Th/cmm (4.8-10.8)
[2018-01-16 23:38] LABS: URINE BILIRUBIN NEGATIVE (NEGATIVE); URINE BLOOD NEGATIVE (NEGATIVE); URINE GLUCOSE (UA) NEGATIVE (NEGATIVE); URINE KETONE NEGATIVE (NEGATIVE); URINE LEUKOCYTE ESTERASE NEGATIVE (NEGATIVE); URINE NITRATE NEGATIVE (NEGATIVE); URINE PROTEIN NEGATIVE (NEGATIVE); URINE UROBILINOGEN 0.2 E.U./dL (0.2 - 1.0)
[2018-01-16 23:41] LABS: URINE CLARITY CLEAR (CLEAR); URINE COLOR YELLOW; URINE MICROSCOPIC INDICATED? NO
[2018-01-16 23:45] LABS: ALB/GLOB RATIO 1.5 (1.0-1.8); ALBUMIN 4.2 gm/dL (4.2-5.5); ALKALINE PHOSPHATASE 79 U/L (34-104); AMYLASE SERUM 19 U/L (29-103); ANION GAP 14.2 (7.0-16.0); BILIRUBIN,TOTAL 0.7 mg/dL (0.3-1.0); BUN - UREA NITROGEN 8 mg/dL (7-25); CALCIUM SERUM 8.6 mg/dL (8.6-10.3); CARBON DIOXIDE 26.1 mEq/L (21.0-31.0); CHLORIDE 103 mEq/L (98-107); CHOLESTEROL 161 mg/dL (<200); CREATININE - SERUM 0.7 mg/dL (0.7-1.3); CREATININE KINASE 849 U/L (30-223); GFR AFRICAN-AMERICAN > 60.0 ml/min (>90); GFR NON AFRICAN-AMERICAN > 60.0 ml/min; GLUCOSE 125 mg/dL (70-105); HDL -HIGH DENSITY LIPOPROTEIN 82 mg/dL (23-92); LIPASE 9 U/L (11-82); POTASSIUM SERUM 3.3 mEq/L (3.5-5.1); SGOT 38 U/L (13-39); SGPT/ALT 17 U/L (7-52); SODIUM SERUM 140 mEq/L (136-145); TOTAL PROTEIN,SERUM 7.1 gm/dL (6.0-8.3); TRIGLYCERIDES 102 mg/dL (<150)
[2018-01-17 00:06] LABS: AMPHETAMINE URINE NEGATIVE (NEGATIVE); BARBITURATES URINE NEGATIVE (NEGATIVE); CANNABINOID THC NEGATIVE (NEGATIVE); COCAINE METABOLITE QUAL URINE NEGATIVE (NEGATIVE); METHADONE URINE NEGATIVE (NEGATIVE); METHAMPHETAMINES QUAL URINE NEGATIVE (NEGATIVE); OPIATES (MORPHINE) QUAL. URINE NEGATIVE (NEGATIVE); PHENCYCLIDINE (PCP) URINE NEGATIVE (NEGATIVE); TRICYCLICS (TCA) QUAL. URINE NEGATIVE (NEGATIVE)
[2018-01-17 00:07] LABS: BENZODIAZEPINES QUAL URINE POSITIVE (NEGATIVE)
[2018-01-17 00:12] LABS: INR 0.95 (0.5-1.4); PROTHROMBIN TIME (TEST) 9.9 SECONDS (9.5-11.5)
--- NOTE | 2018-01-17 02:50 | ED Physician Chart ---
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 Pain after ETOH consumption tonight; pt denies trauma, H/As, S/T, neck pain, C/P, SOB, cough, A/ N/V/D/C, fever, chills, or urinary s/s Allergies:: Allergies Allergy/AdvReac Type Severity Reaction Status Date / Time No Known Allergies Allergy Verified 01/16/18 23:02 Vitals:: Vital Signs - 8 hr 01/16/18 23:00 Temp 98.8 F HR 100 RR 18 BP 133/73 O2 Sat % 95 Historian:: Patient Review:: Nurse's Note Reviewed ED Review of Systems - Review of Systems General/Constitutional: No fever, No chills, No weight loss, No weakness, No diaphoresis, No edema, No loss of appetite Skin: No skin lesions, No rash, No bruising Head: No headache, No light-headedness Eyes: No loss of vision, No pain, No diplopia ENT: No earache, No nasal drainage, No sore throat, No tinnitus Neck: No neck pain, No swelling, No thyromegaly, No stiffness, No mass noted Cardio Vascular: No chest pain, No palpitations, No PND, No orthopnea, No edema Pulmonary: No SOB, No cough, No sputum, No wheezing GI: Nausea, Vomiting, Diarrhea, Pain, No melena, No hematochezia, No constipation, No hematemesis G/U: No dysuria, No frequency, No hematuria, No nacturia Musculoskeletal: No bone or joint pain, No back pain, No muscle pain Endocrine: No polyuria, No polydipsia Psychiatric: No prior psych history, No depression, No anxiety, No suicidal ideation, No homicidal ideation, No auditory hallucination, No visual hallucination Hematopoietic: No bruising, No lymphadenopathy Allergic/Immuno: No urticaria, No angioedema Neurological: No syncope, No focal symptoms, No weakness, No paresthesia, No headache, No seizure, No dizziness, No confusion, No vertigo ED Past Medical History - Past Medical History Obtainable: Yes Past Medical History: No significant medical hx Family History: None Social History: Non Smoker, Alcohol, No Drug Use, Single Surgical History: None Psychiatricy History: None Medication: Reviewed Family Medical History - Family Member Mother History Unknown: Yes Ethnicity: Living Status: Still Living Hx Family Hypertension: Yes Hx Family Diabetes: Yes Father History Unknown: Yes Ethnicity: Living Status: Still Living Hx Family Hypertension: Yes Hx Family Diabetes: Yes ED Physical Exam - Physical Examination General/Constitutional: Awake, Well-developed, well-nourished, Alert, No distress, GCS 15, Non-toxic appearing, Ambulatory Head: Atraumatic Eyes: Lids, conjuctiva normal, PERRL, EOMI Skin: Nl inspection, No rash, No skin lesions, No ecchymosis, Well hydrated, No lymphadenopathy ENMT: External ears, nose nl, TM canals nl, Nasal exam nl, Lips, teeth, gums nl , Oropharynx nl, Tonsils nl Neck: Nontender, Full ROM w/o pain, No JVD, No nuchal rigidity, No bruit, No mass, No stridor Other Neck comments:: supple; no meningeal signs; no cervical tenderness; Respiratory: Nl effort/Exclusion, Clear to Auscultation, No Wheeze/Rhonchi/Rales Cardio Vascular: RRR, No murmur, gallop, rubs, NL S1 S2, Carotid/Femoral/Distal pulses equal bilaterally GI: No tenderness/rebounding/guarding, No organomegaly, No hernia, Normal BS's, Nondistended, No mass/bruits, No McBurney tenderness, Rectum exam nl Other GI comments:: no pulsatile masses : No CVA tenderness Extremities: No tenderness or effusion, Full ROM, normal strength in all extremities, No edema, Normal digits & nails Neuro/Psych: Alert/oriented, DTR's symmetric, Normal sensory exam, Normal motor strength, Judgement/insight normal, Mood normal, Normal gait, No focal deficits Other Neuro/Psych comments:: no focal signs Misc: Normal back, No paraspinal tenderness ED Labs/Radiology/EKG Results - Lab Results Results: Laboratory Tests 01/16/18 01/16/18 01/16/18 23:00 23:00 23:20 WBC 6.4 RBC 4.06 L Hgb 14.3 Hct 40.1 L MCV 98.8 MCH 35.2 H MCHC Differential 35.7 RDW 11.9 Plt Count 201 MPV 7.3 Neutrophils % 67.3 Lymphocytes % 20.9 Monocytes % 10.4 H Eosinophils % 0.6 Basophils % 0.8 PT INR Sodium Potassium Chloride Carbon Dioxide Anion Gap BUN Creatinine Est GFR ( Amer) Est GFR (Non-Af Amer) BUN/Creatinine Ratio Glucose Calcium Total Bilirubin AST ALT Alkaline Phosphatase Creatine Kinase Troponin I B-Natriuretic Peptide Total Protein Albumin Globulin Albumin/Globulin Ratio Triglycerides Cholesterol LDL Cholesterol Direct HDL Cholesterol Amylase Lipase Urine Color YELLOW Urine Clarity CLEAR Urine pH 6.0 Ur Specific [place] <= 1.005 Urine Protein NEGATIVE Urine Glucose (UA) NEGATIVE Urine Ketones NEGATIVE Urine Blood NEGATIVE Urine Nitrate NEGATIVE Urine Bilirubin NEGATIVE Urine Urobilinogen 0.2 Ur Leukocyte Esterase NEGATIVE Urine Opiates Screen NEGATIVE Urine Methadone Screen NEGATIVE Ur Barbiturates Screen NEGATIVE Ur Tricyclics Screen NEGATIVE Ur Phencyclidine Scrn NEGATIVE Amphetamines Screen NEGATIVE U Methamphetamines Scrn NEGATIVE U Benzodiazepines Scrn POSITIVE H U Cocaine Metab Screen NEGATIVE U Cannabinoids Screen NEGATIVE Ethyl Alcohol 01/16/18 01/16/18 01/16/18 23:20 23:20 23:20 WBC RBC Hgb Hct MCV MCH MCHC Differential RDW Plt Count MPV Neutrophils % Lymphocytes % Monocytes % Eosinophils % Basophils % PT 9.9 INR 0.95 Sodium 140 Potassium 3.3 L Chloride 103 Carbon Dioxide 26.1 Anion Gap 14.2 BUN 8 Creatinine 0.7 Est GFR ( Amer) > 60.0 Est GFR (Non-Af Amer) > 60.0 BUN/Creatinine Ratio 11.4 Glucose 125 H Calcium 8.6 Total Bilirubin 0.7 AST 38 ALT 17 Alkaline Phosphatase 79 Creatine Kinase 849 H Troponin I B-Natriuretic Peptide 12.3 Total Protein 7.1 Albumin 4.2 Globulin 2.9 Albumin/Globulin Ratio 1.5 Triglycerides 102 Cholesterol 161 LDL Cholesterol Direct 59 L HDL Cholesterol 82 Amylase 19 L Lipase 9 L Urine Color Urine Clarity Urine pH Ur Specific [place] Urine Protein Urine Glucose (UA) Urine Ketones Urine Blood Urine Nitrate Urine Bilirubin Urine Urobilinogen Ur Leukocyte Esterase Urine Opiates Screen Urine Methadone Screen Ur Barbiturates Screen Ur Tricyclics Screen Ur Phencyclidine Scrn Amphetamines Screen U Methamphetamines Scrn U Benzodiazepines Scrn U Cocaine Metab Screen U Cannabinoids Screen Ethyl Alcohol 406 H 01/16/18 23:20 WBC RBC Hgb Hct MCV MCH MCHC Differential RDW Plt Count MPV Neutrophils % Lymphocytes % Monocytes % Eosinophils % Basophils % PT INR Sodium Potassium Chloride Carbon Dioxide Anion Gap BUN Creatinine Est GFR ( Amer) Est GFR (Non-Af Amer) BUN/Creatinine Ratio Glucose Calcium Total Bilirubin AST ALT Alkaline Phosphatase Creatine Kinase Troponin I 0.01 B-Natriuretic Peptide Total Protein Albumin Globulin Albumin/Globulin Ratio Triglycerides Cholesterol LDL Cholesterol Direct HDL Cholesterol Amylase Lipase Urine Color Urine Clarity Urine pH Ur Specific [place] Urine Protein Urine Glucose (UA) Urine Ketones Urine Blood Urine Nitrate Urine Bilirubin Urine Urobilinogen Ur Leukocyte Esterase Urine Opiates Screen Urine Methadone Screen Ur Barbiturates Screen Ur Tricyclics Screen Ur Phencyclidine Scrn Amphetamines Screen U Methamphetamines Scrn U Benzodiazepines Scrn U Cocaine Metab Screen U Cannabinoids Screen Ethyl Alcohol Comments:: Reviewed - EKG Interpretations Rate & Rhythm: NSR Comments:: non-specific st-t changes ED Assessment - Assessment Assessment/Comments:: Rx: IV NS with Banana Bag; KCL Eilixir 40meq po: pt refused Rx; pt chose to sign out AMA ED Septic Shock - . Is Septic Shock (SBP<90, OR Lactate>4 mmol\L) present?: No - <6hrs of presentation: Vital Signs: Vital Signs - 8 hr 01/16/18 23:00 Temp 98.8 F HR 100 RR 18 BP 133/73 O2 Sat % 95 ED Reassessment (Disposition) - Reassessment Reassessment:: pt chose to sign out AMA; pt is asymptomatic upon discharge/AMA Reassessment Condition:: Improved - Diagnosis Diagnosis:: Alcohol Intoxication; Abdominal Pain; Gastritis; Hypokalemia; Abdominal Pain; Alcohol Abuse - Aftercare/Follow up Instructions Aftercare/Follow-Up Instructions:: Counseled pt regarding lab results/diagnosis & need follow up, Refer to Discharge Instructions, Counseled pt & family regarding lab results/diagnosis & need follow up - Patient Disposition Discharge/Transfer:: Against Medical Advice Condition at Disposition:: Stable, Improved (RTER prn if existing s/s reoccur and/or get worse and/or any other new s/s occur; ACIs given for all above Dx; X- Rays Instructions; Refer to Room Cooler Installer/GI Specialist/Psychiatrist/Construction Site Manager RAUL; Refer to [facility] RAUL; F/U with PMD Today or prn; RTER prn if concerned)
--- NOTE | 2018-01-17 08:22 | Diagnostic Imaging Report ---
CT abdomen and pelvis without intravenous contrast Indication: Abdominal pain Comparison: CT abdomen and pelvis performed on 11/15/2015, Technique: Axial images were obtained from the lung bases to the bilateral proximal femurs without IV contrast. Coronal reconstructions were made. total DLP: 585, CTDI11.4 FINDINGS: Hypoventilatory and atelectatic changes of the lung bases are noted. Assessment of the solid organs is limited due to lack of IV contrast. There is diffuse fatty infiltration of the liver. No focal lesions. Increased density of the gallbladder is noted. No radiopaque gallstone identified. No focal splenic, pancreatic, or vaginal lesions. No evidence of hydronephrosis or focal renal lesions. Moderate stool is noted. Minimal diverticulosis is noted without evidence of diverticulitis. Fluid-filled appendix is noted at the upper limits of normal in size. No evidence of free fluid or free air. Mild degenerative changes of the spine are noted. IMPRESSION: Fluid-filled appendix at the upper limits of normal in size. No evidence of surrounding inflammatory changes to suggest acute process at this time. Please correlate with clinical findings. If indicated a repeat examination in 24 hours with IV and oral contrast may be obtained. Minimal diverticulosis without evidence of diverticulitis. Increased density of the gallbladder which may be due to etiology such as sludge. No radiopaque gallstones, however, ultrasound further clarify, if indicated. Hepatic steatosis.
== END 2018-01-17 00:10 | disposition left against medical advice (07) ==
LOC: ER 22:50
DX: K29.70 Gastritis, unspecified, without bleeding (principal); F10.129 Alcohol abuse with intoxication, unspecified; E87.6 Hypokalemia; Y90.8 Blood alcohol level of 240 mg/100 ml or more
CPT/HCPCS: 36415-UA; 80053-TC; 80061-TC; 80307; 80320-TC; 81003-TC; 82150-TC; 82550-TC; 82553; 83690-TC; 83880-TC; 84484-TC; 85025-TC; 85610-TC; 93005

== ENCOUNTER 2018-01-21 00:22 | Emergency (ER) | payer MEDICAID ==
[2018-01-21 01:14] LABS: URINE SOURCE RANDOM
[2018-01-21 01:21] LABS: % BASOPHILS 0.3 % (0.0-2.0); % EOSINOPHILS 1.8 % (0.0-5.0); % LYMPHOCYTES 23.4 % (20.0-50.0); % MONOCYTES 9.5 % (2.0-10.0); EOSINOPHILE ABSOLUTE 0.1 Th/cmm (0.1-0.4); HEMATOCRIT 44.7 % (41.0-60); HEMOGLOBIN 15.2 gm/dL (12-16); LYMPHOCYTE ABSOLUTE 1.9 Th/cmm (1.5-3.0); MEAN CELL VOLUME 99.6 fl (80-99); MEAN CORPUSCULAR HEMOGLOBIN 33.9 pg (26.0-30.0); MEAN PLATELET VOLUME 7.4 fl; MONOCYTE ABSOLUTE 0.8 Th/cmm (0.3-1.0); NEUTROPHILE ABSOLUTE 5.4 Th/cmm (1.8-8.0); PLATELET COUNT 179 Th/cmm (150-400); RED BLOOD COUNT 4.49 Mil/cmm (4.30-5.70); RED CELL DISTRIBUTION WIDTH 12.3 % (11.5-20.0); WHITE BLOOD COUNT 8.2 Th/cmm (4.8-10.8)
[2018-01-21 01:23] LABS: URINE BILIRUBIN NEGATIVE (NEGATIVE); URINE BLOOD NEGATIVE (NEGATIVE); URINE GLUCOSE (UA) NEGATIVE (NEGATIVE); URINE KETONE NEGATIVE (NEGATIVE); URINE LEUKOCYTE ESTERASE NEGATIVE (NEGATIVE); URINE NITRATE NEGATIVE (NEGATIVE); URINE PROTEIN NEGATIVE (NEGATIVE)
[2018-01-21 01:32] LABS: ALB/GLOB RATIO 1.2 (1.0-1.8); ALBUMIN 4.1 gm/dL (4.2-5.5); ALKALINE PHOSPHATASE 89 U/L (34-104); ANION GAP 12.2 (7.0-16.0); BILIRUBIN,TOTAL 0.8 mg/dL (0.3-1.0); BUN - UREA NITROGEN 6 mg/dL (7-25); CARBON DIOXIDE 26.8 mEq/L (21.0-31.0); CHLORIDE 102 mEq/L (98-107); CREATININE - SERUM 0.7 mg/dL (0.7-1.3); GFR AFRICAN-AMERICAN > 60.0 ml/min (>90); GFR NON AFRICAN-AMERICAN > 60.0 ml/min; GLUCOSE 116 mg/dL (70-105); LIPASE 11 U/L (11-82); SGOT 72 U/L (13-39); SGPT/ALT 55 U/L (7-52); SODIUM SERUM 138 mEq/L (136-145); TOTAL PROTEIN,SERUM 7.6 gm/dL (6.0-8.3)
[2018-01-21 01:34] LABS: URINE CLARITY CLEAR (CLEAR); URINE COLOR YELLOW
[2018-01-21 01:35] LABS: URINE MICROSCOPIC INDICATED? NO
[2018-01-21 01:41] LABS: AMPHETAMINE URINE NEGATIVE (NEGATIVE); BARBITURATES URINE NEGATIVE (NEGATIVE); BENZODIAZEPINES QUAL URINE POSITIVE (NEGATIVE); CANNABINOID THC NEGATIVE (NEGATIVE); COCAINE METABOLITE QUAL URINE NEGATIVE (NEGATIVE); METHADONE URINE NEGATIVE (NEGATIVE); METHAMPHETAMINES QUAL URINE NEGATIVE (NEGATIVE); OPIATES (MORPHINE) QUAL. URINE NEGATIVE (NEGATIVE); PHENCYCLIDINE (PCP) URINE NEGATIVE (NEGATIVE); TRICYCLICS (TCA) QUAL. URINE NEGATIVE (NEGATIVE)
[2018-01-21] MEDS ORDERED: Potassium Chloride 20 mEq ER Tab PO ONE ×2 (01:48→01:51)
--- NOTE | 2018-02-01 20:20 | ER Physician Documentation ---
DATE OF SERVICE: CHIEF COMPLAINT: ETOH abuse, abdominal pain. HISTORY OF PRESENT ILLNESS: This is a 27-year-old male who came in on 01/21/2018 at 0022 for complaints of abdominal pain and right flank pain, history of ETOH abuse, and alcoholic liver disease. The patient denied vomiting. No hematemesis. No dark stool. No syncope, hypotension, or dizziness. Has chronic ETOH abuse. The patient denied drug abuse. PAST MEDICAL HISTORY: As mentioned, ETOH abuse and liver disease. FAMILY HISTORY: Negative. SOCIAL HISTORY: ETOH chronic. REVIEW OF SYSTEMS: All systems were reviewed and otherwise negative other than mentioned in the HPI. PHYSICAL EXAMINATION: GENERAL: The patient was awake, alert. HEENT: Pupils equal, reactive to light. NECK: Supple. CARDIAC: Regular rate and rhythm without murmurs or gallops. LUNGS: Clear to auscultation and percussion. ABDOMEN: Soft, nontender, no organomegaly, no ascites palpable. No hernias. EXTREMITIES: No cyanosis, clubbing, or edema. REVIEW OF SYSTEMS: Overall he is awake, no signs of acute distress. No visual blurring, no cough, no sore throat, no headache, no neuro deficits, no GI bleeding or abdominal masses. No constipation, diarrhea, or vomiting. No fever, no shortness of breath, no chest pain, no dizziness, no syncope. No psychosis, agitation, depression, or suicidal ideation. No paranoia or history of psych problems. The patient was evaluated. LABORATORY DATA: Laboratories data were obtained. They were within normal limits. EMERGENCY DEPARTMENT COURSE: The patient was monitored. He stayed here until he was able to leave on his own. The patient was discharged in stable condition, in no acute distress and is to follow up with his regular doctor. JOB# [id number]
--- NOTE | 2018-02-11 16:48 | ER Physician Documentation ---
DATE OF SERVICE: DIAGNOSES: Abdominal pain and ETOH abuse. JOB# [id number]
== END 2018-01-21 06:30 | disposition home or self-care (01) ==
LOC: ER 00:22
DX: R10.9 Unspecified abdominal pain (principal); F10.10 Alcohol abuse, uncomplicated
CPT/HCPCS: 36415-UA; 80053-TC; 80307; 81003-TC; 83690-TC; 85025-TC; Z7502

== ENCOUNTER 2018-02-18 21:55 | Emergency (ER) | payer MEDICAID | END 2018-02-18 22:45 | disposition left against medical advice (07) | LOC: ER 21:55 | DX: R07.89 Other chest pain (principal) | CPT/HCPCS: 93005 ==

== ENCOUNTER 2018-03-12 20:08 | Emergency (ER) | payer MEDICAID ==
--- NOTE | 2018-03-12 20:27 | ED Physician Chart ---
ED Chief Complaint/HPI - Patient Information Date Seen:: 03/12/18 Time Seen:: 20:24 Chief Complaint:: RUQ pain History of Present Illness:: 27 yo male was brought by ambulance to ER for LUQ abdominal pain for 2 months. The patient confided that he drank alcohol. "I am stupid that I kept drinking." "I called 911 because I felt pain in my left stomach." Patient stated he vomited once. Patient was hungry and wanted to eat. Allergies:: Allergies Allergy/AdvReac Type Severity Reaction Status Date / Time No Known Allergies Allergy Verified 01/21/18 01:10 ED Review of Systems - Review of Systems General/Constitutional: No fever Skin: No bruising Head: No headache Eyes: No pain ENT: No nasal drainage Neck: No neck pain Cardio Vascular: No palpitations, No edema Pulmonary: No SOB GI: Nausea, Vomiting, Pain Musculoskeletal: No bone or joint pain Neurological: No focal symptoms ED Past Medical History - Past Medical History Past Medical History: Other (liver disease, gallbladder sludge) Social History: Smoker, Alcohol, Illicit Drug Use (marijuana, cocacaine) Surgical History: None Family Medical History - Family Member Mother History Unknown: Yes Ethnicity: Living Status: Still Living Hx Family Hypertension: Yes Hx Family Diabetes: Yes Father History Unknown: Yes Ethnicity: Living Status: Still Living Hx Family Hypertension: Yes Hx Family Diabetes: Yes ED Physical Exam - Physical Examination General/Constitutional: Awake, Alert Head: Atraumatic Eyes: PERRL Skin: No ecchymosis ENMT: Nasal exam nl Neck: No nuchal rigidity Respiratory: No Wheeze/Rhonchi/Rales Cardio Vascular: RRR, No murmur, gallop, rubs, NL S1 S2 Other GI comments:: LUQ tenderness Extremities: normal strength in all extremities Neuro/Psych: No focal deficits ED Labs/Radiology/EKG Results - Lab Results Results: Laboratory Last Values WBC 5.5 Th/cmm (4.8-10.8) 03/12/18 20:47 RBC 4.51 Mil/cmm (4.30-5.70) 03/12/18 20:47 Hgb 15.5 gm/dL (12-16) 03/12/18 20:47 Hct 45.8 % (41.0-60) 03/12/18 20:47 MCV 101.6 fl (80-99) H 03/12/18 20:47 MCH 34.3 pg (26.0-30.0) H 03/12/18 20:47 MCHC Differential 33.8 pg (28.0-36.0) 03/12/18 20:47 RDW 14.1 % (11.5-20.0) 03/12/18 20:47 Plt Count 235 Th/cmm (150-400) 03/12/18 20:47 MPV 7.2 fl 03/12/18 20:47 Neutrophils % 60.0 % (40.0-80.0) 03/12/18 20:47 Lymphocytes % 24.9 % (20.0-50.0) 03/12/18 20:47 Monocytes % 9.0 % (2.0-10.0) 03/12/18 20:47 Eosinophils % 5.7 % (0.0-5.0) H 03/12/18 20:47 Basophils % 0.4 % (0.0-2.0) 03/12/18 20:47 Sodium 141 mEq/L (136-145) 03/12/18 20:47 Potassium 3.6 mEq/L (3.5-5.1) 03/12/18 20:47 Chloride 102 mEq/L (98-107) 03/12/18 20:47 Carbon Dioxide 26.1 mEq/L (21.0-31.0) 03/12/18 20:47 Anion Gap 16.5 (7.0-16.0) H 03/12/18 20:47 BUN 6 mg/dL (7-25) L 03/12/18 20:47 Creatinine 0.7 mg/dL (0.7-1.3) 03/12/18 20:47 Est GFR ( Amer) > 60.0 ml/min (>90) 03/12/18 20:47 Est GFR (Non-Af Amer) > 60.0 ml/min 03/12/18 20:47 BUN/Creatinine Ratio 8.6 03/12/18 20:47 Glucose 88 mg/dL (70-105) 03/12/18 20:47 Calcium 8.7 mg/dL (8.6-10.3) 03/12/18 20:47 Total Bilirubin 0.5 mg/dL (0.3-1.0) 03/12/18 20:47 AST 57 U/L (13-39) H 03/12/18 20:47 ALT 96 U/L (7-52) H 03/12/18 20:47 Alkaline Phosphatase 73 U/L (34-104) 03/12/18 20:47 Total Protein 7.8 gm/dL (6.0-8.3) 03/12/18 20:47 Albumin 4.5 gm/dL (4.2-5.5) 03/12/18 20:47 Globulin 3.3 gm/dL 03/12/18 20:47 Albumin/Globulin Ratio 1.4 (1.0-1.8) 03/12/18 20:47 Lipase 10 U/L (11-82) L 03/12/18 20:47 Urine Source RANDOM 03/12/18 20:47 Urine Color YELLOW 03/12/18 20:47 Urine Clarity CLEAR (CLEAR) 03/12/18 20:47 Urine pH 6.0 (4.6 - 8.0) 03/12/18 20:47 Ur Specific [place] <= 1.005 (1.005-1.030) 03/12/18 20:47 Urine Protein NEGATIVE mg/dL (NEGATIVE) 03/12/18 20:47 Urine Glucose (UA) NEGATIVE mg/dL (NEGATIVE) 03/12/18 20:47 Urine Ketones NEGATIVE mg/dL (NEGATIVE) 03/12/18 20:47 Urine Blood NEGATIVE (NEGATIVE) 03/12/18 20:47 Urine Nitrate NEGATIVE (NEGATIVE) 03/12/18 20:47 Urine Bilirubin NEGATIVE (NEGATIVE) 03/12/18 20:47 Urine Urobilinogen 0.2 E.U./dL (0.2 - 1.0) 03/12/18 20:47 Ur Leukocyte Esterase NEGATIVE (NEGATIVE) 03/12/18 20:47 Urine RBC NONE SEEN /hpf (0-5) 03/12/18 20:47 Urine WBC 0-2 /hpf (0-5) 03/12/18 20:47 Ur Epithelial Cells FEW /lpf (FEW) 03/12/18 20:47 Urine Bacteria OCCASIONAL /hpf (NONE SEEN) 03/12/18 20:47 Urine Opiates Screen NEGATIVE (NEGATIVE) 03/12/18 20:47 Urine Methadone Screen NEGATIVE (NEGATIVE) 03/12/18 20:47 Ur Barbiturates Screen NEGATIVE (NEGATIVE) 03/12/18 20:47 Ur Tricyclics Screen NEGATIVE (NEGATIVE) 03/12/18 20:47 Ur Phencyclidine Scrn NEGATIVE (NEGATIVE) 03/12/18 20:47 Amphetamines Screen NEGATIVE (NEGATIVE) 03/12/18 20:47 U Methamphetamines Scrn NEGATIVE (NEGATIVE) 03/12/18 20:47 U Benzodiazepines Scrn NEGATIVE (NEGATIVE) 03/12/18 20:47 U Cocaine Metab Screen NEGATIVE (NEGATIVE) 03/12/18 20:47 U Cannabinoids Screen NEGATIVE (NEGATIVE) 03/12/18 20:47 Ethyl Alcohol 387 mg/dL (0-10) H 03/12/18 20:47 ED Assessment - Assessment General Assessment: Abdominal pain ETOH abuse Assessment/Comments:: CBC, CMP, lipase ETOH level UA, urine drug screen Patient left AMA ED Septic Shock - . Is Septic Shock (SBP<90, OR Lactate>4 mmol\\L) present?: No ED Reassessment (Disposition) - Reassessment Reassessment Condition:: Improved - Patient Disposition Discharge/Transfer:: Against Medical Advice
[2018-03-12 20:49] LABS: % BASOPHILS 0.4 % (0.0-2.0); % EOSINOPHILS 5.7 % (0.0-5.0); % LYMPHOCYTES 24.9 % (20.0-50.0); EOSINOPHILE ABSOLUTE 0.3 Th/cmm (0.1-0.4); HEMATOCRIT 45.8 % (41.0-60); HEMOGLOBIN 15.5 gm/dL (12-16); LYMPHOCYTE ABSOLUTE 1.4 Th/cmm (1.5-3.0); MEAN CELL VOLUME 101.6 fl (80-99); MEAN CORPUSCULAR HEMOGLOBIN 34.3 pg (26.0-30.0); MEAN CORPUSCULAR HGB CONC 33.8 pg (28.0-36.0); MEAN PLATELET VOLUME 7.2 fl; MONOCYTE ABSOLUTE 0.5 Th/cmm (0.3-1.0); NEUTROPHILE ABSOLUTE 3.3 Th/cmm (1.8-8.0); PLATELET COUNT 235 Th/cmm (150-400); RED BLOOD COUNT 4.51 Mil/cmm (4.30-5.70); RED CELL DISTRIBUTION WIDTH 14.1 % (11.5-20.0); URINE SOURCE RANDOM; WHITE BLOOD COUNT 5.5 Th/cmm (4.8-10.8)
[2018-03-12 20:52] LABS: URINE BILIRUBIN NEGATIVE (NEGATIVE); URINE BLOOD NEGATIVE (NEGATIVE); URINE GLUCOSE (UA) NEGATIVE (NEGATIVE); URINE KETONE NEGATIVE (NEGATIVE); URINE LEUKOCYTE ESTERASE NEGATIVE (NEGATIVE); URINE NITRATE NEGATIVE (NEGATIVE); URINE PROTEIN NEGATIVE (NEGATIVE); URINE UROBILINOGEN 0.2 E.U./dL (0.2 - 1.0)
[2018-03-12 20:55] LABS: URINE CLARITY CLEAR (CLEAR); URINE COLOR YELLOW; URINE MICROSCOPIC INDICATED? YES
[2018-03-12 21:05] LABS: URINE BACTERIA OCCASIONAL /hpf (NONE SEEN); URINE RBC NONE SEEN /hpf (0-5); URINE WBC 0-2 /hpf (0-5)
[2018-03-12 21:06] LABS: ALB/GLOB RATIO 1.4 (1.0-1.8); ALBUMIN 4.5 gm/dL (4.2-5.5); ALKALINE PHOSPHATASE 73 U/L (34-104); ANION GAP 16.5 (7.0-16.0); BILIRUBIN,TOTAL 0.5 mg/dL (0.3-1.0); BUN - UREA NITROGEN 6 mg/dL (7-25); CALCIUM SERUM 8.7 mg/dL (8.6-10.3); CARBON DIOXIDE 26.1 mEq/L (21.0-31.0); CHLORIDE 102 mEq/L (98-107); CREATININE - SERUM 0.7 mg/dL (0.7-1.3); GFR AFRICAN-AMERICAN > 60.0 ml/min (>90); GFR NON AFRICAN-AMERICAN > 60.0 ml/min; GLUCOSE 88 mg/dL (70-105); LIPASE 10 U/L (11-82); POTASSIUM SERUM 3.6 mEq/L (3.5-5.1); SGOT 57 U/L (13-39); SGPT/ALT 96 U/L (7-52); SODIUM SERUM 141 mEq/L (136-145); TOTAL PROTEIN,SERUM 7.8 gm/dL (6.0-8.3); URINE EPITHELIAL CELLS FEW /lpf (FEW)
[2018-03-12 21:08] LABS: AMPHETAMINE URINE NEGATIVE (NEGATIVE); BARBITURATES URINE NEGATIVE (NEGATIVE)
[2018-03-12 21:09] LABS: BENZODIAZEPINES QUAL URINE NEGATIVE (NEGATIVE); CANNABINOID THC NEGATIVE (NEGATIVE); COCAINE METABOLITE QUAL URINE NEGATIVE (NEGATIVE); METHADONE URINE NEGATIVE (NEGATIVE); METHAMPHETAMINES QUAL URINE NEGATIVE (NEGATIVE); OPIATES (MORPHINE) QUAL. URINE NEGATIVE (NEGATIVE); PHENCYCLIDINE (PCP) URINE NEGATIVE (NEGATIVE); TRICYCLICS (TCA) QUAL. URINE NEGATIVE (NEGATIVE)
== END 2018-03-12 20:45 | disposition left against medical advice (07) ==
LOC: ER 20:08
DX: R10.12 Left upper quadrant pain (principal); F10.10 Alcohol abuse, uncomplicated; R11.2 Nausea with vomiting, unspecified; F17.200 Nicotine dependence, unspecified, uncomplicated; Y90.8 Blood alcohol level of 240 mg/100 ml or more
CPT/HCPCS: 36415-UA; 80053-TC; 80307; 80320-TC; 81001-TC; 83690-TC; 85025-TC; Z7502

== ENCOUNTER 2018-12-09 23:14 | Emergency (ER) | payer MEDICAID ==
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
== END 2018-12-10 | disposition left against medical advice (07) ==
LOC: ER 23:14
DX: F10.129 Alcohol abuse with intoxication, unspecified (principal); K70.9 Alcoholic liver disease, unspecified; F17.210 Nicotine dependence, cigarettes, uncomplicated
CPT/HCPCS: Z7502

== ENCOUNTER 2019-01-07 16:17 | Emergency (ER) | payer MEDICAID ==
[2019-01-07] MEDS ORDERED: Sodium Chloride 0.9% 1,000 ML IV ONE (17:37)
[2019-01-07 17:57] LABS: % BASOPHILS 1.9 % (0.0-2.0); % EOSINOPHILS 7.3 % (0.0-5.0); % LYMPHOCYTES 21.7 % (20.0-50.0); % MONOCYTES 6.4 % (2.0-10.0); % NEUTROPHILS 62.7 % (40.0-80.0); BASOPHILE ABSOLUTE 0.1 Th/cumm (0-0.2); EOSINOPHILE ABSOLUTE 0.4 Th/cmm (0.1-0.4); HEMATOCRIT 43.4 % (41.0-60); HEMOGLOBIN 15.4 gm/dL (12-16); LYMPHOCYTE ABSOLUTE 1.1 Th/cmm (1.5-3.0); MEAN CELL VOLUME 99.7 fl (80-99); MEAN CORPUSCULAR HEMOGLOBIN 35.4 pg (26.0-30.0); MEAN CORPUSCULAR HGB CONC 35.5 pg (28.0-36.0); MONOCYTE ABSOLUTE 0.3 Th/cmm (0.3-1.0); NEUTROPHILE ABSOLUTE 3.3 Th/cmm (1.8-8.0); PLATELET COUNT 171 Th/cmm (150-400); RED BLOOD COUNT 4.35 Mil/cmm (4.30-5.70); RED CELL DISTRIBUTION WIDTH 14.1 % (11.5-20.0); WHITE BLOOD COUNT 5.2 Th/cmm (4.8-10.8)
[2019-01-07 18:16] LABS: ALB/GLOB RATIO 1.4 (1.0-1.8); ALBUMIN 4.6 gm/dL (4.2-5.5); ALKALINE PHOSPHATASE 76 U/L (34-104); AMYLASE SERUM 27 U/L (29-103); BILIRUBIN,TOTAL 0.6 mg/dL (0.3-1.0); BUN - UREA NITROGEN 5 mg/dL (7-25); CALCIUM SERUM 8.9 mg/dL (8.6-10.3); CHLORIDE 102 mEq/L (98-107); CREATININE - SERUM 0.6 mg/dL (0.7-1.3); GFR AFRICAN-AMERICAN > 60.0 ml/min (>90); GFR NON AFRICAN-AMERICAN > 60.0 ml/min; GLUCOSE 104 mg/dL (70-105); LIPASE 14 U/L (11-82); POTASSIUM SERUM 3.7 mEq/L (3.5-5.1); SGOT 73 U/L (13-39); SGPT/ALT 44 U/L (7-52); SODIUM SERUM 139 mEq/L (136-145)
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
[2019-01-07 21:18] LABS: ANION GAP 18.1 (7.0-16.0); CARBON DIOXIDE 22.6 mEq/L (21.0-31.0)
== END 2019-01-07 18:20 | disposition left against medical advice (07) ==
LOC: ER 16:17
DX: F10.10 Alcohol abuse, uncomplicated (principal); R41.82 Altered mental status, unspecified; F17.200 Nicotine dependence, unspecified, uncomplicated; Z59.0 Homelessness; Y90.8 Blood alcohol level of 240 mg/100 ml or more
CPT/HCPCS: 36415-UA; 80053-TC; 80320-TC; 82150-TC; 83690-TC; 84484-TC; 85025-TC; 93005; J7030